=== PATIENT | female | born 1985 | race Caucasian/White ===

== ENCOUNTER 2017-11-10 20:49 | Emergency (ER) | payer SELFPAY ==
[~2017-11-10] VITALS: Ht 167.6 cm; Wt 47.7 kg
[2017-11-10] MEDS: LIDOCAINE HCL/PF 1% 2 ML VIAL IM ONE (22:53)
[2017-11-10] MEDS: CefTRIAXone SODIUM 1 GM/VIAL IM ONE (22:53)
[2017-11-10] MEDS: AMOX TR/POT CLAV 875 MG/125 MG TABLET PO ONE (22:54)
[2017-11-10] MEDS: POVIDONE-IODINE 10% 15 ML SOLUTION UD TP ONE (22:54)
[2017-11-10] MEDS: PERTUSS(ACELL),DIPH,TET VAC/PF 0.5 ML VIAL IM ONE (22:54)
[2017-11-10 23:18] VITALS: BP 130/77
== END 2017-11-10 23:21 | disposition home or self-care (01) ==
LOC: EMS 20:50
DX: S81.851A Open bite, right lower leg, initial encounter (principal); L03.115 Cellulitis of right lower limb; W55.01XA Bitten by cat, initial encounter; Y93.01 Activity, walking, marching and hiking; Y92.89 Other specified places as the place of occurrence of the external cause; Y99.8 Other external cause status
CPT/HCPCS: 90471; 90715; 96372; 99284; J0696; J3490

== ENCOUNTER 2018-08-04 22:50 | Emergency (ER) | payer SELFPAY ==
[~2018-08-04] VITALS: Ht 167.6 cm; Wt 46.4 kg
[2018-08-05 01:50] VITALS: BP 129/76
[2018-08-05] MEDS ORDERED: SULFAMETHOX/TRIMETH DS 800-160 MG/TABLET PO ONE (02:00)
[2018-08-05] MEDS ORDERED: NAPROXEN 250 MG TABLET PO ONE (02:00)
== END 2018-08-05 02:11 | disposition home or self-care (01) ==
LOC: EMS 22:51
DX: L02.31 Cutaneous abscess of buttock (principal); F17.210 Nicotine dependence, cigarettes, uncomplicated; F12.90 Cannabis use, unspecified, uncomplicated; Z91.040 Latex allergy status; Z88.5 Allergy status to narcotic agent

== ENCOUNTER 2021-06-30 21:01 | Emergency (ER) | payer MEDICAID ==
[~2021-06-30] VITALS: Ht 167.6 cm; Wt 56.8 kg
[2021-06-30 21:30] VITALS: BP 135/70
[2021-06-30] MEDS ORDERED: AMOX1TAB16 PO (21:41)
== END 2021-06-30 21:56 | disposition home or self-care (01) ==
LOC: EMS 21:01
DX: S61.451A Open bite of right hand, initial encounter (principal); L03.113 Cellulitis of right upper limb; J45.909 Unspecified asthma, uncomplicated; F12.90 Cannabis use, unspecified, uncomplicated; F17.210 Nicotine dependence, cigarettes, uncomplicated; Z88.5 Allergy status to narcotic agent; Z91.040 Latex allergy status; W55.01XA Bitten by cat, initial encounter; Y93.89 Activity, other specified; Y92.89 Other specified places as the place of occurrence of the external cause; Y99.8 Other external cause status
CPT/HCPCS: 99283